=== PATIENT | female | born 1995 | race Caucasian/White ===

== ENCOUNTER 2016-06-03 14:47 | Emergency (ER) | payer OTHER ==
[2016-06-03 15:03] VITALS: BP 121/71
[2016-06-03] MEDS ORDERED: DEPO-MEDROL IM ONE (15:41)
[2016-06-03] MEDS ORDERED: TORADOL IM ONE (15:41)
--- NOTE | 2016-06-03 15:48 | PROVIDER DOCUMENTATION ---
HPI-Musculoskeletal Pain/Inj - GENERAL Source: patient - HX OF PRESENT ILLNESS-MUSKULOSKELTAL Quality of Pain: reports: aching Severity in ED: mild Onset/Duration: 2 days ago Timing: still present, intermittent Modifying Factors: improves with: nothing Any recent injury?: No Locality of Occurance: Home Similar Symptoms Previously?: Yes Recently seen or treated by another doctor?: No - LOWER EXTREMITY PAIN/INJURY Lower Extremities Pain: knee: right (pain ) Context / Method of Injury: reports: unknown Associated Symptoms: reports: denies symptoms <Thelma Bruno - Last Filed: 06/03/16 15:44> <Chet Braun - Last Filed: 06/03/16 15:51> - GENERAL Chief Complaint: Extremity Pain Stated Complaint: KNEE PAIN Time Seen by Provider: 06/03/16 15:35 - HX OF PRESENT ILLNESS-MUSKULOSKELTAL Nature of Presenting Problem: Pt is 20 y/o F presents to the ED with R knee pain. Pt states pain started Friday. Pt denies injury or fall. (Thelma Bruno) Review of Systems - Adult - REVIEW OF SYSTEMS - ADULT Constitutional: reports: no symptoms reported Eyes: reports: no symptoms reported Ears, Nose, Mouth & Throat: reports: no symptoms reported Cardiovascular: reports: no symptoms reported Respiratory: reports: no symptoms reported Gastrointestinal: reports: no symptoms reported Genitourinary: reports: no symptoms reported Musculoskeletal: reports: other (R knee pain). denies: bone pain, joint pain, neck pain Integumentary: reports: no symptoms reported Neurological: reports: no symptoms reported Psychiatric: reports: no symptoms reported Endocrine: reports: no symptoms reported Hematologic/Lymphatic: reports: no symptoms reported Allergic/Immunologic: reports: no symptoms reported All Other Systems: Reviewed and Negative <Thelma Bruno - Last Filed: 06/03/16 15:44> Past History - Adult - PAST MEDICAL HISTORY-ADULT Review of Records: reports: Nursing Assessment Review, Medications Reviewed, Social history reviewed & non-contributory. Major Childhood Illnesses: reports: denies history Cardiovascular: reports: denies history Respiratory: reports: asthma Gastrointestinal: reports: denies history Obstetrical/Gynecological: reports: other (7 weeks ) Genitourinary: reports: denies history Musculoskeletal: reports: denies history Neurological: reports: denies history Psychiatric: reports: anxiety Endocrine/Immune: reports: denies history Other Conditions: reports: denies history - PRIOR SURGERIES/PROCEDURES Surgical/Procedure History: reports: reviewed, not pertinent, other ( adenoidectomy) - IMMUNIZATION STATUS Childhood Immunizations: See Nurse Assessment Flu Vaccine: See Nurse Assessment - FAMILY HISTORY Family History: reviewed, not pertinent - SOCIAL HISTORY Smoking: denies Substance Use: denies Living Situation: family <Thelma Bruno - Last Filed: 06/03/16 15:44> Physical Exam-Injury Related - Physical Exam-Injury Related Initial Vital Signs Reviewed: Yes General Appearance: appears well, alert, no apparent distress Eyes: PERRL/EOMI, pink conjunctivae, fundi clear, no AV nicking Head, Ears, Nose, Mouth & Throat: normocephalic/atraumatic, moist mucous membranes, normal ENT inspection, TMs normal, pharynx normal Neck: non-tender, full range of motion, supple, normal inspection Respiratory: chest non-tender, lungs clear, normal breath sounds, no pleuratic chest pain, no respiratory distress, no accessory muscle use Cardiovascular: normal peripheral pulses, regular rate, rhythm, no edema, no gallop, no JVD, no murmur Abdominal Exam: normal bowel sounds, non tender, soft, no organomegaly, no pulsatile mass Lymphatic: no adenopathy Back Exam: normal inspection, no CVA tenderness, no vertebral tenderness Extremity: normal range of motion, normal gait, normal inspection, no pedal edema, no calf tenderness, normal capillary refill, swelling (R knee), tenderness (R knee) Integumentary: normal color, warm/dry Neurologic: grossly normal Psych/Mental Status: normal mood/affect, oriented x 3 <Thelma Bruno - Last Filed: 06/03/16 15:44> Progress <Thelma Bruno - Last Filed: 06/03/16 15:44> <Chet Braun - Last Filed: 06/03/16 15:51> - PLAN OF CARE/RESULTS Progress/Plan/Lab Results: Orders Category Date Time Status Paulo Wrap Application DIRECTED Care 06/03/16 15:41 Active Ketorolac [Toradol] Med 06/03/16 15:41 Discontinued 60 mg IM NOW ONE Methylprednisolone Acetate [Depo-Medrol] Med 06/03/16 15:41 Discontinued 40 mg IM NOW ONE Vital Signs - 24 hr 06/03/16 15:01 Temperature 98 F Pulse Rate 79 Respiratory 18 Rate Blood Pressure 121/71 O2 Sat by Pulse 98 Oximetry (Thelma Bruno) Discussed results and plan of care with patient. Patient agrees with plan and verbalizes understanding. Vital Signs Temp Pulse Resp BP Pulse Ox 06/03/16 15:01 98 F 79 18 121/71 98 Sulfa (Sulfonamide Antibiotics) Allergy (Intermediate, Verified 01/14/16 02:03) HIVES No Home Medications 06/03/16 Orders Category Date Time Status Paulo Wrap Application DIRECTED Care 06/03/16 15:41 Active Ketorolac [Toradol] Med 06/03/16 15:41 Discontinued 60 mg IM NOW ONE Methylprednisolone Acetate [Depo-Medrol] Med 06/03/16 15:41 Discontinued 40 mg IM NOW ONE (Chet Braun) Departure <Thelma Bruno - Last Filed: 06/03/16 15:44> - Departure Time of Disposition Order: 15:49 Certified Medical Emergency: Emergent <Chet Braun - Last Filed: 06/03/16 15:51> - Departure DIAGNOSIS: Tendonitis Disposition: HOME 01 Condition: Stable Additional Instructions: Follow up with primary care physician Take medications as directed Return to ED for any concerns or worsening of symptoms ED Follow Up Instructions: You have been treated by a care provider in the Emergency Department. These instructions are being provided to you so you can have an understanding of how to care for yourself upon discharge. Upon discharge from the Emergency Department, you are responsible for making arrangements for follow-up care by a physician of your choice. Take all prescribed medications as directed. Return to the Emergency Department immediately for any new or worsening symptoms. You may call the Physician Referral phone number at [phone] to obtain a list of Physicians who are taking new patients. Prescriptions: Methylprednisolone [Medrol Dosepak] 4 mg PO DIRECTED #1 package Meloxicam [Mobic] 7.5 mg PO DAILY #20 tablet Referrals: None,PCP [Primary Care Provider] - Attestation - Scribe Verification/Attestation Scribe:: Thelma Bruno Acting as Scribe for:: Chet Braun Scribe documention review:: This chart was documented by a scribe and accurately reflects the service the provider performed and the decisions made by the provider. <Thelam Bruno - Last Filed: 06/03/16 15:44> - Physician/ BHASKAR Attestation Patient care was provided by Advanced Practice Provider:: Yes Advanced Practice Provider:: Chet Braun Advanced Practice Provider documentation review:: The Mid-level provider documentation, treatment plan and medical decision making was reviewed by the physician who agrees with all treatment and medical decision making by the MLP. <Chet Braun - Last Filed: 06/03/16 15:51> Physician Attestation
== END 2016-06-03 16:05 | disposition home or self-care (01) ==
LOC: P.ED 14:47
DX: M76.9 Unspecified enthesopathy, lower limb, excluding foot (principal); M25.561 Pain in right knee; M25.461 Effusion, right knee
CPT/HCPCS: J1030; J1885